=== PATIENT | female | born 1960 | race African-American/Black ===

== ENCOUNTER 2016-11-29 14:45 | Inpatient (IN) ==
[2016-11-29] MEDS ORDERED: ONDANSETRON 4 MG/2 ML VIAL IV PRN (14:55)
[2016-11-29] MEDS ORDERED: DEXTROSE 50% 25 GM/50 ML SYRINGE IV PRN (14:55)
[2016-11-29] MEDS ORDERED: GLUCAGON 1 MG VIAL IM PRN (14:55)
[2016-11-29] MEDS ORDERED: ACETAMINOPHEN 325 MG TABLET PO PRN (14:55)
[2016-11-29] MEDS ORDERED: CLINDAMYCIN INJ 600 MG in PREMIX 1 EACH IV STA (15:03)
--- NOTE | 2016-11-29 15:24 | Internal Med History&Physical ---
Assessment and Plan (1) Abscess of left breast Status: Acute Assessment and plan: 55-year-old female admitted to acute care * Abscess of the left breast. Will consult surgery to evaluate. She will require incision and drainage. She is tachycardic and has low-grade fever. This has been going on for about a week. Will do blood cultures on the patient. We will start her on broad-spectrum antibiotics empirically. * History of protein S deficiency with recurrent DVTs and pulmonary embolism. Will check PT/INR on the patient. She may have to be covered by Lovenox if her Coumadin has to be stopped * Diabetes. Will keep her on her home medications and a sliding scale * History of depression and PTSD. Continue current treatment * Hypertension. Blood pressure is stable * Discussed with patient (2) Hypertension Status: Acute (3) Depression Status: Acute (4) DVT (deep venous thrombosis) Status: Acute (5) Pulmonary embolus Status: Acute (6) Type 2 diabetes mellitus Status: Acute History of Present Illness Chief complaint: Painful swelling of the left breast with abscess History of present illness: Ms. Colbert is a 55 year old female with history of multiple medical problems including protein S deficiency with recurrent DVTs, hypertension, depression and posttraumatic stress disorder, coronary artery disease, sarcoidosis, chronic back pain who presented to the office with painful swelling of the left breast for about a week. She states that her sister opened it up and it helped a little bit but she is hurting more. She was running a low-grade fever in the office and was tachycardic. Patient has been admitted for further evaluation and treatment. She has not been feeling well for past 1 week. She denies any chest pain or shortness of breath. She denies any nausea vomiting or diarrhea. Patient lives alone. No history of smoking or alcohol use in recent past Home Medications Medication Instructions Recorded Confirmed Type Benztropine Tab [Cogentin Tab] 0.5 mg PO TID 10/26/15 10/26/15 History Cholecalciferol (Vitamin D3) 1,000 unit PO DAILY 10/26/15 10/26/15 History [Vitamin D3] Cyclobenzaprine HCl 10 mg PO BEDTIME 10/26/15 10/26/15 History Doxepin HCl 100 mg PO BEDTIME 10/26/15 10/26/15 History Duloxetine HCl [Cymbalta] 120 mg PO DAILY 10/26/15 10/26/15 History Furosemide Tab [Lasix Tab] 20 mg PO MOTU 10/26/15 10/26/15 History Lisinopril 10 mg PO DAILY 10/26/15 10/26/15 History Quetiapine Fumarate 300 mg PO BEDTIME 10/26/15 10/26/15 History Simvastatin [Zocor] 20 mg PO BEDTIME 10/26/15 10/26/15 History Temazepam [Restoril] 30 mg PO BEDTIME 10/26/15 10/26/15 History Warfarin Sodium 5 mg PO SUTUWETHSA 10/26/15 10/26/15 History Warfarin Sodium 10 mg PO MOFR 10/26/15 10/26/15 History glipiZIDE [Glipizide] 5 mg PO DAILY 10/26/15 10/26/15 History Allergies Allergy/AdvReac Type Severity Reaction Status Date / Time carbamazepine [From Tegretol] Allergy ITCHING Verified 10/26/15 13:52 morphine Allergy ITCHING Verified 10/26/15 13:52 Medical,Surgical,& Family Hx - Medical History Cardio: History of: CAD Psychological: History of: Depression (PTSD) Endocrine: History of: Diabetes Mellitus (NIDDM), Dyslipidemia Respiratory: History of: Pulmonary Embolism Musculoskeletal: History of: Back/Neck Problems (Chronic pain) Hematology: History of: Bleeding Problems (proteinase), Blood Disorders ( History of protein S deficiency) - Surgical History Reproductive Surgeries: Surgical HX of;: Breast Surgery (Breast reduction), Hysterectomy - Family History Family History: Reports;: Family Cancer (Breast), Family Diabetes, Family Hypertension - Social History Smoking Status: Never smoker Marital Status: Single Lives With:: Alone Functional capacity: independent ambulation 12 point system: reviewed and no additional remarkable complaints except as stated (As mentioned in HPI) Exam - Constitutional Exam: Examination: Vital signs in the office are temperature 99.1. Heart rate 120. Respiratory rate 16 blood pressure 156/98. Weight was 207.6 pounds GENERAL: NAD. HEENT: PERRLA. EOMI. Mucous membranes are moist. NECK: Neck is supple. No JVD. No carotid bruit. No thyromegaly. CVS: Tachycardic but regular rhythm. S1 and S2 are normal Breast: Indurated area in the inferior lateral part of left breast with fluctuation. It is about the size of a golf ball RESPIRATORY: Lungs are clear. No rales or rhonchi. ABDOMEN: Soft and nontender. Bowel sounds are present. No hepatosplenomegaly. EXT: 1+ edema. Peripheral pulses are present. SURFACE MOUNT TECHNOLOGY OPERATOR: Patient is awake, alert and oriented to time place and person. Cranial nerves II through XII are grossly intact. Motor strength is 5 over 5 both upper and lower extremities. Sensory is intact. Deep tendon reflexes are present. SKIN: Warm and dry. MSK: No obvious deformity.
--- NOTE | 2016-11-29 15:57 | EKG Report ---
Stationary ECG Study [facility] Test Date: 11/29/2016 3:58:21 PM Pat Name: CAREY ESCOBEDO Department: Room: 329 Gender: F Histotechnician: : 1960 Requested by: Berry Jaime Order Number: [id number] Reading MD: RENEE TUCKER Intervals [place] Rate: 80 P: 67 VA: 143 QRS: 66 QRSD: 84 T: 34 QT: 356 QTc: 392 Interpretive Statements SINUS RHYTHM LOW QRS VOLTAGE IN PRECORDIAL LEADS Electronically Signed On 11-29-16 20:33:06 CDT by RENEE TUCKER [email or web address]
--- NOTE | 2016-11-29 16:32 | General Surgery Consult Note ---
Assessment and Plan - Time spent with patient Time spent with patient: Less than 30 minutes (1) Abscess of left breast Status: Acute Assessment and plan: This appears to be an abscess of the soft tissues just inferior to the scar of her old reduction mammoplasty. Past incision and drainage at the bedside. I agree with treatment with IV antibiotics. Procedure and risk of been discussed and she wishes to proceed today at the bedside. Current Visit: Yes History of Present Illness Chief complaint: Breast abscess History of present illness: Ms. Colbert is a 55 year old female Who for 5 days increasing pain and swelling in the inferior aspect of her left lateral breast. She is tried to express pus from this. She has had some low- grade fever. She is not been feeling well. She was noted to have cellulitis of the left inferior breast abscess by Dr. Jaime and was admitted for IV antibiotics. She has not had a previous breast infection. She has had previous breast reduction surgery. Home Medications Medication Instructions Recorded Confirmed Type Benztropine Tab [Cogentin Tab] 0.5 mg PO TID 10/26/15 10/26/15 History Cholecalciferol (Vitamin D3) 1,000 unit PO DAILY 10/26/15 10/26/15 History [Vitamin D3] Cyclobenzaprine HCl 10 mg PO BEDTIME 10/26/15 10/26/15 History Doxepin HCl 100 mg PO BEDTIME 10/26/15 10/26/15 History Duloxetine HCl [Cymbalta] 120 mg PO DAILY 10/26/15 10/26/15 History Furosemide Tab [Lasix Tab] 20 mg PO MOTU 10/26/15 10/26/15 History Lisinopril 10 mg PO DAILY 10/26/15 10/26/15 History Quetiapine Fumarate 300 mg PO BEDTIME 10/26/15 10/26/15 History Simvastatin [Zocor] 20 mg PO BEDTIME 10/26/15 10/26/15 History Temazepam [Restoril] 30 mg PO BEDTIME 10/26/15 10/26/15 History Warfarin Sodium 5 mg PO SUTUWETHSA 10/26/15 10/26/15 History Warfarin Sodium 10 mg PO MOFR 10/26/15 10/26/15 History glipiZIDE [Glipizide] 5 mg PO DAILY 10/26/15 10/26/15 History Allergies Allergy/AdvReac Type Severity Reaction Status Date / Time carbamazepine [From Tegretol] Allergy ITCHING Verified 10/26/15 13:52 morphine Allergy ITCHING Verified 10/26/15 13:52 Medical,Surgical,& Family Hx - Medical History Cardio: History of: CAD, Hypertension Psychological: History of: Depression (PTSD) Neurology: History of: Cerebrovascular Accident, Migraine Endocrine: History of: Diabetes Mellitus (NIDDM), Dyslipidemia Respiratory: History of: Pulmonary Embolism Musculoskeletal: History of: Back/Neck Problems (Chronic pain) Hematology: History of: Bleeding Problems (proteinase), Clotting Problems (DVT) , Blood Disorders (History of protein S deficiency) - Surgical History Thoracic Surgeries: Surgical HX of;: Kidney (Renal Surgery) (KIDNEY) Reproductive Surgeries: Surgical HX of;: Breast Surgery (Breast reduction), Hysterectomy - Family History Family History: Reports;: Family Cancer (Breast), Family Diabetes, Family Hypertension - Social History Smoking Status: Never smoker Frequency of Alcohol Use: Occasionally Type of Drug Use: None - Constitutional Constitutional: Present: fever(s). Absent: anorexia, chills - Cardiovascular Cardiovascular: Absent: chest pain at rest, chest pain with activity, dyspnea, dyspnea on exertion - Respiratory Respiratory: Absent: dyspnea, hemoptysis, dyspnea on exertion - Gastrointestinal Gastrointestinal: Absent: abdominal pain, hematemesis, hematochezia - Genitourinary Genitourinary: Absent: hematuria - Neurological Neurological: Absent: focal weakness, syncope - Endocrine Endocrine: Absent: polyuria Hematologic/Lymphatic: Present: easy bleeding, easy bruising Exam - Constitutional General appearance: no acute distress - Head Head exam: Present: normocephalic - Eye Eye exam: Absent: scleral icterus - ENT Mouth exam: Present: normal voice - Neck Neck exam: Present: trachea midline. Absent: tenderness - Respiratory Respiratory exam: Present: clear to auscultation bilaterally. Absent: accessory muscle use - Cardiovascular Cardiovascular exam: Present: RRR - GI/Abdominal GI/Abdominal exam: Present: soft. Absent: distended, guarding, tenderness, rebound - Neurological Exam Neurological exam: Present: alert, oriented X3. Absent: motor sensory deficit Speech: Present: normal - Skin Skin exam: Present: normal color
--- NOTE | 2016-11-29 16:36 | Operative Note ---
Date of procedure: 11/29/16 Pre-op diagnosis: Left breast abscess Post-op diagnosis: same Procedure: Incision and drainage left breast abscess Findings and technique: After informed consent was obtained the patient was in the supine position in her bed and her left chest was prepped and draped in usual sterile fashion. A small transverse incision was made over the draining sinus inferior to her old scar. An abscess cavity about 2 cm in size was entered pus evacuated and cultured. All of the pus was expressed manually and the wound packed open and a sterile dressing applied. She appeared to tolerate the procedure well. Anesthesia: none Surgeon / Physician: Epifanio Campbell III. Specimens: other (Cultures) Condition: stable Disposition: no change Discharge Plan - Discharge Medications No Action Benztropine Tab [Cogentin Tab] 0.5 mg PO TID Cholecalciferol (Vitamin D3) [Vitamin D3] 1,000 unit PO DAILY Cyclobenzaprine HCl 10 mg PO BEDTIME Doxepin HCl 100 mg PO BEDTIME Duloxetine HCl [Cymbalta] 120 mg PO DAILY Furosemide Tab [Lasix Tab] 20 mg PO MOTU glipiZIDE [Glipizide] 5 mg PO DAILY Lisinopril 10 mg PO DAILY Quetiapine Fumarate 300 mg PO BEDTIME Simvastatin [Zocor] 20 mg PO BEDTIME Temazepam [Restoril] 30 mg PO BEDTIME Warfarin Sodium 5 mg PO SUTUWETHSA Warfarin Sodium 10 mg PO MOFR - Follow Up or Referral - Forms/Instructions
[2016-11-29] MEDS: SODIUM CHLORIDE 0.9% 1,000 ML IV SCH (16:47)
[2016-11-29] MEDS: INSULIN LISPRO 100 UNIT/ML SUBCUT SCH (16:48)
[2016-11-29 17:00] LABS: Basophils % 0.1 % (0.0-0.8); Eosinophils # 0.1 10*3/uL (0.0-0.87); Eosinophils % 1.5 % (0.00-10.9); Hemoglobin 11.3 GM/DL (12.0-16.0); Immature Granulocytes % 0.7 %; Immature Granulocytes Absolute 0.05 #; Lymphocytes # 2.3 10*3/uL (1.4-4.0); Lymphocytes % 30.4 % (21.3-54.2); Mean Corpuscular HGB Conc 32.3 GM/DL (32-36); Mean Corpuscular Hemoglobin 29 PG (27-34); Mean Corpuscular Volume 89.3 FL (87-102); Mean Platelet Volume 9.9 FL (9.6-12.0); Monocytes # 0.5 10*3/uL (0.11-0.8); Monocytes % 6.9 % (1.7-12.7); Neutrophils # 4.5 10*3/uL (1.4-7.4); Neutrophils % 60.4 % (38.7-73.9); Platelet Count 261 T/CUMM (130-400); Red Blood Count 3.92 MC/CUMM (3.8-5.5); Red Cell Distribution Width 12.9 % (9.3-17.3); White Blood Count 7.4 T/CUMM (4-12)
[2016-11-29 17:20] LABS: INR 1.4; PT Patient Result 15.2 SECS
[2016-11-29 17:27] LABS: Osmolality,Calculated 276.5 MOS/KG (273-304); Potassium 4.4 MMOL/L (3.5-5.1)
[2016-11-29] MEDS: cefTRIAXone 1,000 MG in SODIUM CHLORIDE 0.9% 100 ML IV SCH (17:46)
[2016-11-29] MEDS: WARFARIN 5 MG TABLET PO SCH (18:54)
[2016-11-29] MEDS: QUEtiapine 100 MG TABLET PO SCH (20:34)
[2016-11-29] MEDS: DOCUSATE SODIUM 100 MG CAPSULE PO SCH (20:35)
[2016-11-29] MEDS: TEMAZEPAM 15 MG CAPSULE PO SCH (20:36)
[2016-11-29] MEDS: DOXEPIN 100 MG CAPSULE PO SCH (20:36)
[2016-11-29] MEDS: SIMVASTATIN 20 MG TABLET PO SCH (20:36)
[2016-11-29] MEDS: BENZTROPINE 0.5 MG TABLET PO SCH (20:43)
[2016-11-30] MEDS: SODIUM CHLORIDE 0.9% 1,000 ML IV SCH ×5 (01:41→23:48)
[2016-11-30 07:31] LABS: Basophils % 0.4 % (0.0-0.8); Eosinophils # 0.1 10*3/uL (0.0-0.87); Eosinophils % 2.2 % (0.00-10.9); Hematocrit 30.6 VOL% (35.7-47.0); Hemoglobin 10.1 GM/DL (12.0-16.0); Immature Granulocytes % 0.2 %; Immature Granulocytes Absolute 0.01 #; Lymphocytes # 2.4 10*3/uL (1.4-4.0); Lymphocytes % 48.9 % (21.3-54.2); Mean Corpuscular Hemoglobin 29 PG (27-34); Mean Corpuscular Volume 87.4 FL (87-102); Mean Platelet Volume 9.8 FL (9.6-12.0); Monocytes # 0.5 10*3/uL (0.11-0.8); Monocytes % 9.5 % (1.7-12.7); Neutrophils # 1.9 10*3/uL (1.4-7.4); Neutrophils % 38.8 % (38.7-73.9); Platelet Count 236 T/CUMM (130-400); Red Cell Distribution Width 13.1 % (9.3-17.3)
[2016-11-30] MEDS: INSULIN LISPRO 100 UNIT/ML SUBCUT SCH ×2 (07:36→16:51)
[2016-11-30 07:54] LABS: INR 1.5; PT Patient Result 15.8 SECS
[2016-11-30 08:08] LABS: Calcium 8.2 MG/DL (8.5-10.1); Osmolality,Calculated 280.3 MOS/KG (273-304); Potassium 4.5 MMOL/L (3.5-5.1)
--- NOTE | 2016-11-30 08:18 | Internal Med Progress Note ---
Assessment and Plan (1) Abscess of left breast Status: Acute Assessment and plan: 55-year-old female admitted to acute care * Abscess of the left breast. Patient had I&D yesterday. Cultures are pending. She may require further I&D. * History of protein S deficiency with recurrent DVTs and pulmonary embolism. Continue Coumadin * Diabetes. Blood sugars are better controlled * History of depression and PTSD. Continue current treatment * Hypertension. Blood pressure is stable * Right earache. Will start Corticosporin otic solution 4 drops 4 times daily * Discussed with patient Current Visit: Yes (2) Hypertension Status: Acute Current Visit: Yes (3) Depression Status: Acute Current Visit: Yes (4) DVT (deep venous thrombosis) Status: Acute Current Visit: Yes (5) Pulmonary embolus Status: Acute Current Visit: Yes (6) Type 2 diabetes mellitus Status: Acute Current Visit: Yes Internal Medicine - PN: Subj Interval history: She is feeling better this morning. Her pain is much better after I&D. Exam (Progress Note) - Constitutional Vitals: Period Temp Pulse Resp BP Sys/[place]anger Pulse Ox Last 24 Hr 97.4 F-98.3 F 67-93 18-20 110-145/63-82 92-97 Exam: Examination: GENERAL: NAD. HEENT: PERRLA. EOMI. NECK: Neck is supple. CVS: Regular rate and rhythm Breast: Indurated area in the inferior lateral part of left breast. There is another area of induration just medial to the first area with some pus oozing out RESPIRATORY: Lungs are clear. No rales or rhonchi. ABDOMEN: Soft and nontender. EXT: 1+ edema. PEDIATRIC DENTIST: Alert and oriented 3 SKIN: Warm and dry. MSK: No obvious deformity. Results - Labs CBC & BMP: 11/30/16 06:53 11/30/16 06:52 Lab Results: I have reviewed the past 24 hour labs
--- NOTE | 2016-11-30 09:00 | General Surgery Progress Note ---
Assessment and Plan (1) Abscess of left breast Status: Acute Assessment and plan: This appears to be an abscess of the soft tissues just inferior to the scar of her old reduction mammoplasty. Past incision and drainage at the bedside. I agree with treatment with IV antibiotics. Procedure and risk of been discussed and she wishes to proceed today at the bedside. 11/30: There is much less erythema and tenderness over the area of abscess and cellulitis along her inferior breast. She had reported another area and there is a smaller area more medially. I do not feel a defined abscess at this location. I would continue IV antibiotics for now. If she has any signs of persistent abscess we may need to I and D her further in the OR. Current Visit: Yes Subjective Patient reports: Present: feels better, pain is less. Absent: fever Exam - Constitutional Vitals: Period Temp Pulse Resp BP Sys/[place] Pulse Ox Last 24 Hr 97.4 F-98.3 F 67-93 18-20 110-145/63-82 92-97 General appearance: no acute distress - Respiratory Respiratory exam: Absent: accessory muscle use - Breasts Breasts: other (There is less induration and no erythema over this abscess area. There is less tenderness.) Results - Labs CBC & BMP: 11/30/16 06:53 11/30/16 06:52 Lab Results: I have reviewed the past 24 hour labs
[2016-11-30] MEDS: NEOMYCIN/POLYMYXIN/HC OTIC SOLN 10 ML BOTTLE RIGHT EAR SCH ×3 (09:04→21:09)
[2016-11-30] MEDS: CLINDAMYCIN INJ 600 MG in PREMIX 1 EACH IV SCH ×2 (09:04→16:56)
[2016-11-30] MEDS: BENZTROPINE 0.5 MG TABLET PO SCH ×3 (09:06→21:08)
[2016-11-30] MEDS: glipiZIDE 5 MG TABLET PO SCH (09:07)
[2016-11-30] MEDS: PANTOPRAZOLE 40 MG TABLET PO SCH (09:07)
[2016-11-30] MEDS: DULoxetine 30 MG CAPSULE PO SCH (09:07)
[2016-11-30] MEDS: DOCUSATE SODIUM 100 MG CAPSULE PO SCH ×2 (09:07→21:08)
[2016-11-30] MEDS: LINACLOTIDE 145 MCG CAPSULE PO SCH (09:42)
[2016-11-30] MEDS: cefTRIAXone 1,000 MG in SODIUM CHLORIDE 0.9% 100 ML IV SCH (14:48)
[2016-11-30] MEDS: metFORMIN 500 MG TABLET PO SCH (16:56)
[2016-11-30] MEDS: WARFARIN 5 MG TABLET PO SCH (17:00)
[2016-11-30] MEDS: TEMAZEPAM 15 MG CAPSULE PO SCH (21:06)
[2016-11-30] MEDS: QUEtiapine 100 MG TABLET PO SCH (21:07)
[2016-11-30] MEDS: SIMVASTATIN 20 MG TABLET PO SCH (21:08)
[2016-11-30] MEDS: DOXEPIN 100 MG CAPSULE PO SCH (21:32)
[2016-12-01] MEDS: CLINDAMYCIN INJ 600 MG in PREMIX 1 EACH IV SCH ×3 (00:57→19:35)
[2016-12-01 05:41] LABS: INR 1.2; PT Patient Result 12.8 SECS
[2016-12-01 06:00] LABS: Calcium 8.1 MG/DL (8.5-10.1); Osmolality,Calculated 281.1 MOS/KG (273-304); Potassium 4.9 MMOL/L (3.5-5.1)
[2016-12-01] MEDS: metFORMIN 500 MG TABLET PO SCH ×2 (08:00→18:26)
[2016-12-01] MEDS: INSULIN LISPRO 100 UNIT/ML SUBCUT SCH ×2 (08:00→18:17)
[2016-12-01] MEDS ORDERED: FLUCONAZOLE 150 MG TABLET PO ONE (08:08)
--- NOTE | 2016-12-01 08:33 | General Surgery Progress Note ---
Assessment and Plan (1) Abscess of left breast Status: Acute Assessment and plan: This appears to be an abscess of the soft tissues just inferior to the scar of her old reduction mammoplasty. Past incision and drainage at the bedside. I agree with treatment with IV antibiotics. Procedure and risk of been discussed and she wishes to proceed today at the bedside. 11/30: There is much less erythema and tenderness over the area of abscess and cellulitis along her inferior breast. She had reported another area and there is a smaller area more medially. I do not feel a defined abscess at this location. I would continue IV antibiotics for now. If she has any signs of persistent abscess we may need to I and D her further in the OR. 12/01: She feels better overall but still has an area of induration and drainage. I discussed incision and drainage of this and the smaller spot medial to it under anesthesia the procedure and risk of been explained and she wishes to proceed Current Visit: Yes Subjective Patient reports: Present: feels better, pain is less. Absent: fever Exam - Constitutional Vitals: Period Temp Pulse Resp BP Sys/[place]anger Pulse Ox Last 24 Hr 97.3 F-98.6 F 68-77 16-18 107-150/67-88 92-97 General appearance: no acute distress - Breasts Breasts: other (There is less tenderness and pain overall but she still has a focal area of purulent drainage on the inferior aspect of her left breast. There is a smaller area medially which may represent a tiny abscess beneath the skin. ) Results - Labs CBC & BMP: 11/30/16 06:53 12/01/16 04:44 Quality Measures - VTE Contraindication to Pharmacological VTE Prophylaxis: Clinical assessment deems Pt at low risk, no prophalaxis needed
--- NOTE | 2016-12-01 08:41 | Internal Med Progress Note ---
Assessment and Plan (1) Abscess of left breast Status: Acute Assessment and plan: 55-year-old female admitted to acute care * Abscess of the left breast. She will undergo more extensive I&D in the OR. Cultures growing gram-positive cocci * History of protein S deficiency with recurrent DVTs and pulmonary embolism. Continue Coumadin * Diabetes. Blood sugars are better controlled * History of depression and PTSD. Continue current treatment * Hypertension. Blood pressure is stable * Discussed with patient Current Visit: Yes (2) Hypertension Status: Acute Current Visit: Yes (3) Depression Status: Acute Current Visit: Yes (4) DVT (deep venous thrombosis) Status: Acute Current Visit: Yes (5) Pulmonary embolus Status: Acute Current Visit: Yes (6) Type 2 diabetes mellitus Status: Acute Current Visit: Yes Internal Medicine - PN: Subj Interval history: She is still having discomfort and pain under her breast. She has drainage off and on. Overall she is feeling better Exam (Progress Note) - Constitutional Vitals: Period Temp Pulse Resp BP Sys/[place]anger Pulse Ox Last 24 Hr 97.3 F-98.6 F 68-77 16-18 107-150/67-88 92-97 Exam: Examination: GENERAL: NAD. NECK: Neck is supple. CVS: Regular rate and rhythm Breast: Indurated area in the inferior lateral part of left breast. RESPIRATORY: Lungs are clear. No rales or rhonchi. ABDOMEN: Soft and nontender. EXT: 1+ edema. SKIN: Warm and dry. MSK: No obvious deformity. Results - Labs CBC & BMP: 11/30/16 06:53 12/01/16 04:44 Lab Results: I have reviewed the past 24 hour labs Quality Measures - VTE Contraindication to Pharmacological VTE Prophylaxis: Clinical assessment deems Pt at low risk, no prophalaxis needed
[2016-12-01] MEDS: DOCUSATE SODIUM 100 MG CAPSULE PO SCH ×2 (09:00→21:18)
[2016-12-01] MEDS: BENZTROPINE 0.5 MG TABLET PO SCH ×3 (09:00→21:12)
[2016-12-01] MEDS: NYSTATIN 500,000 UNIT/5 ML UDCUP SWISH/SWAL SCH ×4 (09:00→21:13)
[2016-12-01] MEDS: SODIUM CHLORIDE 0.9% 1,000 ML IV SCH ×2 (09:49→15:00)
[2016-12-01] MEDS ORDERED: DIAZEPAM 5 MG TABLET PO ONE (11:00)
[2016-12-01] MEDS ORDERED: FAMOTIDINE 20 MG TABLET PO ONE (11:00)
[2016-12-01] MEDS: NEOMYCIN/POLYMYXIN/HC OTIC SOLN 10 ML BOTTLE RIGHT EAR SCH ×3 (11:36→21:13)
[2016-12-01] MEDS ORDERED: LIDOCAINE 1%/EPI INJ 20 ML VIAL ONE (11:52)
[2016-12-01] MEDS ORDERED: BUPIVACAINE MPF 0.25% /EPI 30 ML VIAL ONE (11:52)
[2016-12-01] MEDS ORDERED: LIDOCAINE 2% 5 ML VIAL ONE (13:48)
[2016-12-01] MEDS ORDERED: PROPOFOL 200 MG/20 ML VIAL IV ONE (13:48)
[2016-12-01] MEDS ORDERED: ONDANSETRON 4 MG/2 ML VIAL ONE (13:48)
[2016-12-01] MEDS ORDERED: DEXAMETHASONE 4 MG/1 ML VIAL ONE (13:48)
--- NOTE | 2016-12-01 14:26 | Operative Note ---
Pre-op diagnosis: Breast abscess left lateral and left medial breast Post-op diagnosis: same Procedure: #1 incision and drainage of complex abscess left inferior lateral breast 2. Excision of infected inclusion cyst medial left breast Findings and technique: After informed consent was obtained the patient was brought the operating room and after successful induction with general anesthesia the patient's left chest was prepped and draped in usual sterile fashion. The area that the patient had pointed out as being painful and having some drainage at the medial breast just above her old inferior scar was palpated and there was what appeared to be a comedone in this location. There was a mass beneath it. I was able to express some pus through the abnormal appearing poor in the scan. This point was excised and unroofed a proximally 1 cm epidermal inclusion cyst. This was excised. A small 1 cm wound was packed open after it was irrigated. This was packed with quarter inch iodoform gauze. Next attention was turned to the larger more complex abscess which was opened up just inferior to the scar of her left lower inferior lateral breast. This cavity was about 3 cm. It was copiously irrigated and packed open with iodoform gauze. Anesthesia: GETA, local Surgeon / Physician: Epifanio Campbell III. Estimated blood loss: minimal Specimens: none sent Condition: stable Disposition: PACU Results - Labs CBC & BMP: 11/30/16 06:53 12/01/16 04:44 Discharge Plan - Discharge Medications No Action Benztropine Tab [Cogentin Tab] 0.5 mg PO TID PRN PRN Reason: Extrapyramidal Side Effects Doxepin HCl 50 mg PO BID Duloxetine HCl [Cymbalta] 120 mg PO DAILY glipiZIDE [Glipizide] 5 mg PO DAILY Quetiapine Fumarate 300 mg PO BEDTIME Simvastatin [Zocor] 20 mg PO BEDTIME Temazepam [Restoril] 15 mg PO BEDTIME PRN PRN Reason: Insomnia Warfarin Sodium 5 mg PO DAILY metFORMIN [Glucophage] 1,000 mg PO BID W/MEALS Linaclotide [Linzess] 145 mcg PO DAILY - Follow Up or Referral - Forms/Instructions
--- NOTE | 2016-12-01 14:38 | Anesthesia Post-Op ---
Anesthesia Post OP - Post Ansesthetic Evaluation Patient seen in post op: Yes Resp: within normal limits CV: within normal limits Mental: within normal limits Temp: within normal limits [id number]: within normal limits Nausea and Vomiting: within normal limits Pain: within normal limits
[2016-12-01] MEDS ORDERED: SEVOFLURANE 1 UNIT/15 MINUTE INH ONE (14:45)
[2016-12-01] MEDS ORDERED: fentaNYL 100 MCG/2 ML VIAL ONE (14:45)
[2016-12-01] MEDS ORDERED: DEXTROSE 50% 25 GM/50 ML VIAL IV PRN (16:23)
[2016-12-01] MEDS ORDERED: GLUCAGON 1 MG VIAL IM PRN (16:23)
[2016-12-01] MEDS ORDERED: WARFARIN 5 MG TABLET PO SCH (17:47)
[2016-12-01] MEDS: DULoxetine 30 MG CAPSULE PO SCH (18:11)
[2016-12-01] MEDS: glipiZIDE 5 MG TABLET PO SCH (18:12)
[2016-12-01] MEDS: LINACLOTIDE 145 MCG CAPSULE PO SCH (18:12)
[2016-12-01] MEDS: PANTOPRAZOLE 40 MG TABLET PO SCH (18:14)
[2016-12-01] MEDS: cefTRIAXone 1,000 MG in SODIUM CHLORIDE 0.9% 100 ML IV SCH (18:20)
[2016-12-01] MEDS: SIMVASTATIN 20 MG TABLET PO SCH (21:18)
[2016-12-01] MEDS: DOXEPIN 100 MG CAPSULE PO SCH (21:18)
[2016-12-01] MEDS: TEMAZEPAM 15 MG CAPSULE PO SCH (21:18)
[2016-12-01] MEDS: QUEtiapine 100 MG TABLET PO SCH (21:18)
[2016-12-02] MEDS: SODIUM CHLORIDE 0.9% 1,000 ML IV SCH ×2 (00:04→00:26)
[2016-12-02] MEDS: CLINDAMYCIN INJ 600 MG in PREMIX 1 EACH IV SCH ×3 (00:27→16:00)
[2016-12-02 04:24] LABS: INR 1.1; PT Patient Result 11.8 SECS
--- NOTE | 2016-12-02 08:52 | Event Note ---
She feels well. She is afebrile with stable vital signs. She has minimal discomfort to her left breast. There is no cellulitis or wounds I think from my standpoint she can be discharged home. Detailed wound care instructions were given. I can follow her up next week in the clinic. I will leave the choice of antibiotics up to you.
[2016-12-02] MEDS: INSULIN LISPRO 100 UNIT/ML SUBCUT SCH (08:58)
[2016-12-02] MEDS: BENZTROPINE 0.5 MG TABLET PO SCH ×2 (08:59→15:28)
[2016-12-02] MEDS: DULoxetine 30 MG CAPSULE PO SCH (09:00)
[2016-12-02] MEDS: glipiZIDE 5 MG TABLET PO SCH (09:00)
[2016-12-02] MEDS: DOCUSATE SODIUM 100 MG CAPSULE PO SCH (09:00)
[2016-12-02] MEDS: PANTOPRAZOLE 40 MG TABLET PO SCH (09:01)
[2016-12-02] MEDS: NYSTATIN 500,000 UNIT/5 ML UDCUP SWISH/SWAL SCH ×2 (09:01→13:09)
[2016-12-02] MEDS: LINACLOTIDE 145 MCG CAPSULE PO SCH (09:02)
[2016-12-02] MEDS: NEOMYCIN/POLYMYXIN/HC OTIC SOLN 10 ML BOTTLE RIGHT EAR SCH ×2 (09:02→15:28)
[2016-12-02] MEDS: metFORMIN 500 MG TABLET PO SCH (09:09)
[2016-12-02 12:01] VITALS: BP 140/77
--- NOTE | 2016-12-02 15:08 | Discharge Summary ---
Hospital Course - Hospital Course Hospital Course: This is a 55 year old female patient of Dr. Jaime with history of protein S deficiency and PE/DVT and on coumadin therapy, HTN, DM, dyslipidemia, depression , who presented to ER with acute skin abscesses on left breast, requiring incision and drainage. She is now ready to be discharged and will follow up with Dr. Jaime in clinic. Diagnosis - Discharge Diagnosis (1) Abscess of left breast Status: Acute (2) DVT (deep venous thrombosis) Status: Acute (3) Depression Status: Acute (4) Hypertension Status: Acute (5) Pulmonary embolus Status: Acute (6) Type 2 diabetes mellitus Status: Acute Specialty Discharge - Follow Up or Referrals Follow up with: Epifanio Campbell III., MD [Physician] - (Call office on Sunday to schedule an appointment next week) Discharge Plan - Discharge Data Disposition: Disch To Home/Self Care Condition at Discharge: Stable Discharge Diet: diabetic diet, low fat, low cholesterol Activity: increase activity as tolerated - Discharge Medications New Acetaminophen Tab [Tylenol Tab] 650 mg PO Q6H PRN tablet PRN Reason: Fever > 100.4 Or Headache Docusate Sodium Cap [Colace Cap] 100 mg PO BID capsule Neomycin/Polymyx/Hc Otic Soln [Cortisporin Otic Soln] 4 drop RIGHT EAR TID bottle Continue Benztropine Tab [Cogentin Tab] 0.5 mg PO TID PRN PRN Reason: Extrapyramidal Side Effects Doxepin HCl 50 mg PO BID Duloxetine HCl [Cymbalta] 120 mg PO DAILY glipiZIDE [Glipizide] 5 mg PO DAILY Quetiapine Fumarate 300 mg PO BEDTIME Simvastatin [Zocor] 20 mg PO BEDTIME Temazepam [Restoril] 15 mg PO BEDTIME PRN PRN Reason: Insomnia Warfarin Sodium 5 mg PO DAILY metFORMIN [Glucophage] 1,000 mg PO BID W/MEALS Linaclotide [Linzess] 145 mcg PO DAILY - Follow Up or Referral Follow Up: Epifanio Campbell III., MD [Physician] - (Call office on Sunday to schedule an appointment next week) Berry Jaime MD [Primary Care Provider] - - Forms/Instructions Instructions: Breast Abscess Drainage (DC) Additional Discharge Instructions: Keep abscess sites clean and dry. May use Bactroban topical ointment twice daily if needed. Exam - Constitutional Vitals: Period Temp Pulse Resp BP Sys/Granger Pulse Ox Last 24 Hr 97.0 F-98.3 F 61-84 16-20 135-162/67-89 94-98 General appearance: no acute distress - Head Head exam: Present: normocephalic - Eye Eye exam: Present: EOMI - Respiratory Respiratory exam: Present: clear to auscultation bilaterally - Cardiovascular Cardiovascular exam: Present: regular rate and rhythm - GI/Abdominal GI/Abdominal exam: Present: normal bowel sounds, soft. Absent: tenderness - Extremities Exam Extremities exam: Absent: edema - Back Exam Back exam: Present: normal inspection - Neurological Exam Neurological exam: Present: alert, oriented X3, CN II-XII intact - Psychiatric Psychiatric exam: Present: normal mood - Skin Skin exam: Present: warm, dry, other (bandage in place, left breast (two small abscess drainage sites)) Discharge Results Procedures and tests throughout hospitalization: Pending Orders 11/29/16 16:20 Blood Culture Stat 12/03/16 04:00 Prothrombin Time INR IN AM 12/04/16 04:00 Prothrombin Time INR IN AM Labs on day of discharge: Labs from last 24 hours 12/02/16 12/02/16 12/02/16 11:39 07:30 03:21 INR 1.1 PT Patient/Control Mix 11.8 POC Glucose 157 H 279 H 12/01/16 12/01/16 20:47 17:29 INR PT Patient/Control Mix POC Glucose 216 H 199 H Preliminary micro results at discharge 11/29/16 16:20 Blood Culture - Preliminary Blood No growth at 1 day 11/29/16 16:20 Blood Culture - Preliminary Blood No growth at 1 day DS: Provider Date of admission: 11/29/16 14:55 Primary care physician: Berry Jaime MD Attending physician on admission: Berry Jaime MD Consults: 11/29/16 14:55 Consult to Case Mgmt/Social Srvs [CONS] Routine Reason for Case Mgmt/Social Srvs: Discharge Planning 11/29/16 14:57 Consult to Physician [CONS] Routine Comment: Consulting Provider: Epifanio Campbell III. Consulting Provider Notified: Yes When should Consulting Provider be notified: Now Person Notified: Rimma lemons Date Notified: 11/29/16 Time Notified: 15:55 11/29/16 15:49 Consult to Pastoral Services [CONS] Routine Comment: Pastoral Screen: Request Client Service Administrator Visit Pastoral Screen Source of Request: Patient Discharging clinician: Mariana Leger DO Expected date of discharge: 12/02/16
[2016-12-02] MEDS: cefTRIAXone 1,000 MG in SODIUM CHLORIDE 0.9% 100 ML IV SCH (16:42)
--- NOTE | 2016-12-04 12:26 | Pathology Report from [facility] ---
[facility] ACCESSION # : [id number] PATIENT NAME : Magnus Colbert ORDERING DR : CHEMA PENA III, MD CLINICAL HX: Left breast abscess POST-OP DX: Same SPECIMEN INFO: Inclusive cyst left breast GROSS DESCRIPTION: The specimen is received in formalin labeled with the patients name and consists of a 0.7 x 0.3 cm brown fragment of skin. Also received in the container is a 0.5 x 0.3 cm guerrero-navarro tissue fragment. Submitted in one cassette. DIAGNOSIS FOR MAGNUS COLBERT: LEFT BREAST: Superficial biopsy specimen with benign skin and subcutaneous tissue and focal abscess formation. COLLECTED DATE: 12/01/2016 [facility] REPORT DATE: 12/04/2016 ELECTRONICALLY SIGNED BY: Fahad Marcano III, M.D. 12/04/2016 - 9:25:27 [facility]
== END 2016-12-02 16:30 | disposition home or self-care (01) | DRG 585 ==
LOC: N.3E 15:14
PROVIDERS: ADMIT Internal Medicine; ATTEND Internal Medicine